=== PATIENT | female | born 1955 | race Hispanic/Latino ===

== ENCOUNTER → 2017-09-22 | Outpatient (CLI) | payer MEDICARE ==
[~2017-09-22] MED LIST: ALEN70TA47 PO; ATOR20TA65 PO; CALCIUM PO; CLOP75TA14 PO; CYCL30DR OP; DOCU50CA13 PO; DULO60CA63 PO; FLUT16H NASAL; GLIM1TAB2 PO; INSU100I24 SQ; METF10004 PO; MONT10TA24 PO; OMEG-125 PO; REGADENOSON 0.4 MG/5 ML PF SYG IVP SCH; VALS40TA11 PO; VERA180T8 PO; [UNRECOGNIZED DRUG - OTHER] PO
== END | disposition home or self-care (01) ==
LOC: EDSTATUS 08:20 → SHCH 08:28
PROVIDERS: ATTEND Internal Medicine Cardiovascular Disease
DX: I25.10 Atherosclerotic heart disease of native coronary artery without angina pectoris (principal)
CPT/HCPCS: 78452; 93017; 96374; A9500 ×2; J2785

== ENCOUNTER 2017-10-22 07:25 | Day surgery (SDC) | payer MEDICARE ==
[2017-10-20 08:44] VITALS: BP 131/71
[2017-10-20 08:52] LABS: BASOPHILS % (AUTO) 0.6 % (0.0-5.0); EOSINOPHILS % (AUTO) 1.1 % (0.0-8.0); HEMATOCRIT 41.6 % (36-48); LYMPHOCYTES % (AUTO) 23.5 % (21.0-51.0); MEAN CORPUSCULAR HEMOGLOBIN 32.2 pg (27.0-33.0); MEAN CORPUSCULAR HGB CONC 34.6 g/dL (32.0-36.0); MONOCYTES % (AUTO) 5.7 % (3.0-13.0); NEUTROPHILS % (AUTO) 69.1 % (40.0-77.0); PLATELET COUNT (AUTO) 299 K/uL (130-400); RED BLOOD CELL COUNT(AUTO) 4.47 MIL/uL (4.00-5.50); WHITE BLOOD COUNT (AUTO) 8.4 K/uL (4.8-10.8)
[2017-10-20 08:52] LABS: APPEARANCE,URINE Clear (CLEAR); BILIRUBIN,URINE Negative (NEGATIVE); COLOR,URINE Yellow (YELLOW); GLUCOSE, URINE (UA) Negative (NEGATIVE); KETONES,URINE Negative (NEGATIVE); LEUKOCYTE ESTERASE ,URINE Trace (NEGATIVE); NITRATE,URINE Negative (NEGATIVE); OCCULT BLOOD,URINE Negative (NEGATIVE); PROTEIN,URINE Negative (NEGATIVE); UROBILINOGEN,URINE 0.2 mg/dL (0.2-1.0)
[2017-10-20 09:05] LABS: BACTERIA,URINE Few /HPF (None Seen); RBC,URINE 0-1 /HPF (0-1); WBC,URINE 0-1 /HPF (0-1)
[2017-10-20 09:10] LABS: INR 0.95 (0.85-1.15); PARTIAL THROMBOPLASTIN TIME 25.9 SEC (26.3-35.5)
[2017-10-20 10:03] LABS: CREATININE 0.7 mg/dL (0.5-1.5); POTASSIUM 4.4 mmol/L (3.5-5.1)
[~2017-10-22] VITALS: Ht 160 cm; Wt 90.5 kg
[2017-10-22] VITALS (20 sets, daily range): BP systolic 99–134; BP diastolic 52–72
[~2017-10-22 07:25] MED LIST changes: -REGADENOSON 0.4 MG/5 ML PF SYG IVP SCH; +SODIUM CHLORIDE 0.9% 1000ML 1,000 ML IV SCH
[2017-10-22] MEDS ORDERED: IOPAMIDOL-370 75 ML VIAL IV ONE (08:55)
[2017-10-22] MEDS ORDERED: ISOVUE-370 50ML VIAL IV ONE (08:55)
[2017-10-22] MEDS ORDERED: LIDOCAINE HCL-MPF 2% 5ML VIAL ONE (09:18)
[2017-10-22] MEDS ORDERED: DEXTROSE 50%-WATER 50 ML DISP.SYRIN IV PRN (10:00)
[2017-10-22] MEDS ORDERED: GLUCAGON 1MG KIT 1 MG ML IM PRN (10:00)
[2017-10-22] MEDS ORDERED: INSULIN HUMULIN R 100 UNIT/ML 3ML SQ SCH (11:30)
== END 2017-10-22 18:45 | disposition home or self-care (01) ==
LOC: DAH 07:25
PROVIDERS: ATTEND Internal Medicine Cardiovascular Disease
DX: I25.118 Atherosclerotic heart disease of native coronary artery with other forms of angina pectoris (principal); Z79.899 Other long term (current) drug therapy; G47.30 Sleep apnea, unspecified; E78.5 Hyperlipidemia, unspecified; M81.0 Age-related osteoporosis without current pathological fracture; M06.9 Rheumatoid arthritis, unspecified; M19.90 Unspecified osteoarthritis, unspecified site; I11.9 Hypertensive heart disease without heart failure; E66.09 Other obesity due to excess calories; Z98.890 Other specified postprocedural states; Z90.710 Acquired absence of both cervix and uterus; Z90.49 Acquired absence of other specified parts of digestive tract; Z82.49 Family history of ischemic heart disease and other diseases of the circulatory system; Z83.3 Family history of diabetes mellitus; Z68.36 Body mass index [BMI] 36.0-36.9, adult; Z79.01 Long term (current) use of anticoagulants
CPT/HCPCS: 36415; 71045; 80048; 81001; 82948 ×2; 85025; 85610; 85730; 93005; 93458; A4606; C1894; J1815; J3490; J7030; Q9967 ×2

== ENCOUNTER → 2018-07-26 | Outpatient (CLI) | payer MEDICARE ==
[~2018-07-26] MED LIST changes: +ALEN70TA10 PO; -ALEN70TA47 PO; +METF-446 PO; -METF10004 PO; -SODIUM CHLORIDE 0.9% 1000ML 1,000 ML IV SCH
== END | disposition home or self-care (01) ==
LOC: RAH 12:59
PROVIDERS: ATTEND Family Medicine
DX: R51 Headache (principal)
CPT/HCPCS: 70450

== ENCOUNTER → 2018-10-22 | Outpatient (CLI) | payer MEDICARE ==
[~2018-10-22] MED LIST changes: +VERA180T12 PO; -VERA180T8 PO
== END | disposition home or self-care (01) ==
LOC: RAH 09:18
PROVIDERS: ATTEND Family Medicine
DX: M19.032 Primary osteoarthritis, left wrist (principal)
CPT/HCPCS: 73200

== ENCOUNTER → 2020-10-30 | Outpatient (CLI) | payer MEDICARE ==
[~2020-10-30] MED LIST changes: -ALEN70TA10 PO; +ALEN70TA80 PO; -DULO60CA63 PO; +DULO60CA64 PO; +GLIM1TAB18 PO; -GLIM1TAB2 PO; +MONT-39 PO; -MONT10TA24 PO; -VERA180T12 PO; +VERA180T61 PO
== END | disposition home or self-care (01) ==
LOC: SHCH 14:36
PROVIDERS: ATTEND Internal Medicine Cardiovascular Disease
DX: I73.9 Peripheral vascular disease, unspecified (principal)
CPT/HCPCS: 93925

== ENCOUNTER → 2021-04-08 | Outpatient (CLI) | payer MEDICARE | END | disposition home or self-care (01) | LOC: RAH 12:11 | PROVIDERS: ATTEND Family Medicine | DX: M47.814 Spondylosis without myelopathy or radiculopathy, thoracic region (principal); M25.78 Osteophyte, vertebrae | CPT/HCPCS: 71110; 72070 ==

== ENCOUNTER 2021-08-16 09:00 | Inpatient (IN) | payer MEDICARE ==
[~2021-08-16] VITALS: Ht 160 cm; Wt 89.7 kg
[~2021-08-16 09:00] MED LIST changes: -ALEN70TA80 PO; -ATOR20TA65 PO; -CALCIUM PO; -CYCL30DR OP; -DOCU50CA13 PO; -FLUT16H NASAL; -INSU100I24 SQ; -OMEG-125 PO; -[UNRECOGNIZED DRUG - OTHER] PO
[2021-08-16 10:07] LABS: BASOPHILS % (AUTO) 0.4 % (0.0-5.0); EOSINOPHILS % (AUTO) 1.4 % (0.0-8.0); HEMATOCRIT 43.2 % (36-48); MEAN CORPUSCULAR HEMOGLOBIN 31.1 pg (27.0-33.0); MEAN CORPUSCULAR VOLUME 91.3 fL (79-99); MONOCYTES % (AUTO) 6.2 % (3.0-13.0); NEUTROPHILS % (AUTO) 65.5 % (40.0-77.0); PLATELET COUNT (AUTO) 276 K/uL (130-400); RED BLOOD CELL COUNT(AUTO) 4.73 MIL/uL (4.00-5.50); RED CELL DISTRIBUTION WIDTH 12.4 % (11.0-15.5); WHITE BLOOD COUNT (AUTO) 8.6 K/uL (4.8-10.8)
[2021-08-16 10:15] LABS: CREATININE 0.7 mg/dL (0.5-1.5); POTASSIUM 4.1 mmol/L (3.5-5.1)
[2021-08-16 10:17] LABS: PROTHROMBIN TIME 10.9 SEC (9.6-11.6)
[2021-08-16 10:19] LABS: APPEARANCE,URINE Clear (CLEAR); BILIRUBIN,URINE Negative (NEGATIVE); COLOR,URINE Yellow (YELLOW); GLUCOSE, URINE (UA) >=1000 mg/dL (NEGATIVE); KETONES,URINE Negative (NEGATIVE); LEUKOCYTE ESTERASE ,URINE Negative (NEGATIVE); NITRATE,URINE Negative (NEGATIVE); OCCULT BLOOD,URINE Negative (NEGATIVE); PROTEIN,URINE Negative (NEGATIVE); UROBILINOGEN,URINE 0.2 mg/dL (0.2-1.0)
[2021-08-16 10:38] LABS: BACTERIA,URINE Few /HPF (None Seen)
[2021-08-16 10:42] LABS: RBC,URINE None Seen /HPF (0-1); URIC ACID CRYSTALS,URINE Rare /LPF (None Seen); WBC,URINE 0-1 /HPF (0-1)
[2021-08-16 13:35] VITALS: BP 151/79
[2021-08-16] MEDS ORDERED: FURO20TA4 PO (15:32)
[2021-08-16] MEDS ORDERED: TRAM50TA4 PO (15:32)
[2021-08-16] MEDS ORDERED: LINA145C PO (15:32)
[2021-08-16] MEDS ORDERED: MILK175T2 PO (15:32)
[2021-08-16] MEDS ORDERED: LEVO50CA4 PO (15:32)
[2021-08-16] MEDS ORDERED: FISH1CAP50 PO (15:32)
[2021-08-16] MEDS ORDERED: PITA4TAB2 PO (15:32)
[2021-08-16] MEDS ORDERED: LEVO5TAB13 PO (15:32)
[2021-08-16] MEDS ORDERED: INSU100V37 SQ (15:32)
[2021-08-19] VITALS (29 sets, daily range): BP systolic 89–136; BP diastolic 48–78
[2021-08-19] MEDS ORDERED: CEFAZOLIN SODIUM 1 GM VIAL IVP SCH (06:00)
[2021-08-19] MEDS ORDERED: 0.9%NACL 1000ML 1,000 ML IV ONE (06:53)
[2021-08-19] MEDS ORDERED: CEFAZOLIN SODIUM 1 GM VIAL ONE (08:48)
[2021-08-19] MEDS ORDERED: TRANEXAMIC ACID 1000MG/10ML ONE ×2 (08:48→14:33)
[2021-08-19] MEDS ORDERED: ACETAMINOPHEN 500 MG TABLET ONE (09:00)
[2021-08-19] MEDS ORDERED: CELECOXIB 200 MG CAP ONE (09:00)
[2021-08-19] MEDS ORDERED: METOCLOPRAMIDE 10 MG/2 ML VIAL ONE (09:00)
[2021-08-19] MEDS ORDERED: MIDAZOLAM HCL 1 MG/ML 2ML VIAL ONE ×2 (09:26→11:35)
[2021-08-19] MEDS ORDERED: PROPOFOL 10 MG/ML 20ML VIAL IV ONE (11:35)
[2021-08-19] MEDS ORDERED: FENTANYL CITRATE PF 50 MCG/1 ML 2ML VIAL ONE (11:35)
[2021-08-19] MEDS ORDERED: LIDOCAINE PF 100MG/5ML (2%) SYRINGE 5ML ONE (11:35)
[2021-08-19] MEDS ORDERED: ROCURONIUM 10MG/1ML SYR 10 MG/ML ML ONE (11:35)
[2021-08-19] MEDS ORDERED: SUCCINYLCHOLINE CHLORIDE 20 MG/ML 10 ML VIAL ONE (11:35)
[2021-08-19] MEDS ORDERED: CEFAZOLIN SODIUM 2 GM VIAL IV ONE (11:38)
[2021-08-19] MEDS ORDERED: ROPIVACAINE 0.5% 5MG/ML 30ML IJ ONE (11:39)
[2021-08-19] MEDS ORDERED: TRANEXAMIC ACID 1000MG/10ML IV ONE (11:40)
[2021-08-19] MEDS ORDERED: EPHEDRINE SULFATE 50 MG/ML AMPULE ONE ×3 (11:55→14:26)
[2021-08-19] MEDS ORDERED: GLYCOPYRROLATE 1 MG/5 ML SYRINGE ONE (12:11)
[2021-08-19] MEDS ORDERED: CEFAZOLIN SODIUM 1 GM VIAL IRRIG ONE (12:20)
[2021-08-19] MEDS ORDERED: LIDOCAINE HCL-MPF 1% 2ML VIAL IV PRN (14:00)
[2021-08-19] MEDS ORDERED: KCL 20 MEQ ERTAB PO PRN (14:00)
[2021-08-19] MEDS ORDERED: OXYCODONE HCL 5 MG TAB PO PRN (14:00)
[2021-08-19] MEDS ORDERED: DiphenhydrAMINE HCL 50 MG/ML VIAL IVP PRN (14:00)
[2021-08-19] MEDS ORDERED: ONDANSETRON 4MG INJ IVP PRN (14:00)
[2021-08-19] MEDS ORDERED: TRAMADOL HCL 50 MG TABLET PO PRN ×2 (14:00→18:00)
[2021-08-19] MEDS ORDERED: POTASSIUM CHLORIDE 20MEQ/100ML 100 ML IV PRN (14:00)
[2021-08-19] MEDS: ACETAMINOPHEN 500 MG TABLET PO SCH ×2 (14:00→20:24)
[2021-08-19] MEDS ORDERED: FERROUS FUMARATE 324 MG TABLET PO PRN (14:00)
[2021-08-19] MEDS ORDERED: TEMAZEPAM 15 MG CAPSULE PO PRN (14:00)
[2021-08-19] MEDS: 0.9%NACL 1000ML 1,000 ML IV SCH ×2 (14:00→20:26)
[2021-08-19] MEDS ORDERED: POTASSIUM CHLORIDE 10% ELIXIR 20 MEQ/15 ML UDCUP PO PRN (14:00)
[2021-08-19] MEDS ORDERED: NEOSTIGMINE 5MG/5ML SYR IV ONE (14:05)
[2021-08-19] MEDS: CEFAZOLIN SODIUM 1 GM VIAL IVP SCH (19:15)
[2021-08-19] MEDS: ASPIRIN 81 MG EC TAB PO SCH (20:24)
[2021-08-19] MEDS: PREGABALIN 25 MG CAP PO SCH (20:24)
[2021-08-19] MEDS: Levocetirizine Dihydrochloride 5 MG PO SCH (20:25)
[2021-08-19] MEDS: GLIMEPIRIDE 2 MG TABLET PO SCH (20:25)
[2021-08-19] MEDS: FAMOTIDINE 20MG TAB PO SCH (20:25)
[2021-08-19] MEDS: MONTELUKAST SODIUM 10 MG TAB PO SCH (20:25)
[2021-08-19] MEDS: CELECOXIB 200 MG CAP PO SCH (20:25)
[2021-08-19] MEDS: VALSARTAN 40 MG PO SCH (20:25)
[2021-08-19] MEDS ORDERED: NON-FORMULARY MEDICATION 1 EACH (Metformin HCl 1,000 MG) PO SCH (21:00)
[2021-08-19] MEDS ORDERED: NON-FORMULARY MEDICATION 1 EACH (Glimepiride 1 MG) PO SCH (21:00)
[2021-08-20] MEDS: CEFAZOLIN SODIUM 1 GM VIAL IVP SCH (03:35)
[2021-08-20 03:41] VITALS: BP 151/89
[2021-08-20 04:13] LABS: HEMATOCRIT 34.5 % (36-48); MEAN CORPUSCULAR HEMOGLOBIN 30.6 pg (27.0-33.0); MEAN CORPUSCULAR HGB CONC 33.6 g/dL (32.0-36.0); RED BLOOD CELL COUNT(AUTO) 3.79 MIL/uL (4.00-5.50); RED CELL DISTRIBUTION WIDTH 12.6 % (11.0-15.5)
[2021-08-20 04:22] LABS: CREATININE 0.7 mg/dL (0.5-1.5); POTASSIUM 3.8 mmol/L (3.5-5.1)
[2021-08-20] MEDS: ACETAMINOPHEN 500 MG TABLET PO SCH ×3 (05:54→19:59)
[2021-08-20] MEDS: LEVOTHYROXINE 50 MCG TABLET PO SCH (05:55)
[2021-08-20 08:18] VITALS: BP 120/66
[2021-08-20] MEDS: DULOXETINE HCL 30 MG CAP PO SCH (08:44)
[2021-08-20] MEDS: ASPIRIN 81 MG EC TAB PO SCH ×2 (08:44→19:57)
[2021-08-20] MEDS: FUROSEMIDE 20 MG TABLET PO SCH (08:44)
[2021-08-20] MEDS: GLIMEPIRIDE 2 MG TABLET PO SCH ×2 (08:45→19:58)
[2021-08-20] MEDS: METFORMIN HCL 500 MG TABLET PO SCH ×2 (08:45→15:57)
[2021-08-20] MEDS: CALCIUM CARB 500MG PO PRN ×2 (08:45→19:57)
[2021-08-20] MEDS: CELECOXIB 200 MG CAP PO SCH ×2 (08:45→19:59)
[2021-08-20] MEDS: CLOPIDOGREL 75MG TAB PO SCH (08:45)
[2021-08-20] MEDS: PREGABALIN 25 MG CAP PO SCH (08:46)
[2021-08-20] MEDS: POLYETHYLENE GLYCOL 3350 17 GM POWD.PACK PO SCH (08:46)
[2021-08-20] MEDS: FAMOTIDINE 20MG TAB PO SCH ×2 (08:46→19:57)
[2021-08-20] MEDS: Linaclotide (Linzess) 145 MCG PO SCH (08:53)
[2021-08-20] MEDS ORDERED: NON-FORMULARY MEDICATION 1 EACH (Duloxetine HCl 60 MG) PO SCH (09:00)
[2021-08-20] MEDS ORDERED: NON-FORMULARY MEDICATION 1 EACH (Levothyroxine Sodium (Levothyroxine) 50 MCG) PO SCH (09:00)
[2021-08-20] MEDS: VERAPAMIL HCL 180 MG PO SCH (09:00)
[2021-08-20] MEDS: INSULIN DEGLUDEC SQ SCH (09:00)
[2021-08-20] MEDS: 0.9%NACL 1000ML 1,000 ML IV SCH (09:52)
[2021-08-20 11:54] VITALS: BP 112/61
[2021-08-20] MEDS: OXYCODONE HCL 5 MG TAB PO PRN ×3 (12:06→19:59)
[2021-08-20] MEDS: GABAPENTIN 100 MG CAPSULE PO SCH ×2 (14:36→19:58)
[2021-08-20 16:31] VITALS: BP 134/67
[2021-08-20] MEDS: KETOROLAC 15MG/ML VIAL (15MG/ML) IV PRN (17:42)
[2021-08-20] MEDS: Levocetirizine Dihydrochloride 5 MG PO SCH (19:55)
[2021-08-20] MEDS: VALSARTAN 40 MG PO SCH (19:55)
[2021-08-20] MEDS: MONTELUKAST SODIUM 10 MG TAB PO SCH (19:57)
[2021-08-20 20:41] VITALS: BP 136/64
[2021-08-20 23:33] VITALS: BP 136/70
[2021-08-21 04:12] VITALS: BP 116/62
[2021-08-21] MEDS: LEVOTHYROXINE 50 MCG TABLET PO SCH (05:54)
[2021-08-21] MEDS: GABAPENTIN 100 MG CAPSULE PO SCH ×2 (05:54→13:03)
[2021-08-21] MEDS: ACETAMINOPHEN 500 MG TABLET PO SCH ×2 (05:55→13:04)
[2021-08-21] MEDS: OXYCODONE HCL 5 MG TAB PO PRN ×2 (06:37→13:04)
[2021-08-21 07:36] VITALS: BP 143/65
[2021-08-21] MEDS: KETOROLAC 15MG/ML VIAL (15MG/ML) IV PRN (08:38)
[2021-08-21] MEDS: POLYETHYLENE GLYCOL 3350 17 GM POWD.PACK PO SCH (08:40)
[2021-08-21] MEDS: CLOPIDOGREL 75MG TAB PO SCH (08:41)
[2021-08-21] MEDS: ASPIRIN 81 MG EC TAB PO SCH (08:41)
[2021-08-21] MEDS: GLIMEPIRIDE 2 MG TABLET PO SCH (08:41)
[2021-08-21] MEDS: DULOXETINE HCL 30 MG CAP PO SCH (08:41)
[2021-08-21] MEDS: METFORMIN HCL 500 MG TABLET PO SCH ×2 (08:41→17:43)
[2021-08-21] MEDS: CELECOXIB 200 MG CAP PO SCH (08:41)
[2021-08-21] MEDS: FUROSEMIDE 20 MG TABLET PO SCH (08:42)
[2021-08-21] MEDS: FAMOTIDINE 20MG TAB PO SCH (08:42)
[2021-08-21] MEDS: INSULIN DEGLUDEC SQ SCH (09:00)
[2021-08-21] MEDS: VERAPAMIL HCL 180 MG PO SCH (09:00)
[2021-08-21] MEDS: Linaclotide (Linzess) 145 MCG PO SCH (09:00)
[2021-08-21 11:12] VITALS: BP 127/55
[2021-08-21 16:02] VITALS: BP 137/66
[2021-08-22] MEDS ORDERED: BISACODYL 10 MG SUPP.RECT RC PRN (14:00)
== END 2021-08-21 18:30 | DRG 470 ==
LOC: OBSVTOIN 08-19 06:36 → DAHIP 08-19 06:36 → EDSTATUS 08-19 09:00 → 4AH 08-19 15:09
PROVIDERS: ADMIT Orthopaedic Surgery; ATTEND Orthopaedic Surgery
PROC: 0SRC0J9 Replacement of Right Knee Joint with Synthetic Substitute, Cemented, Open Approach (ICD-10-PCS; principal; 2021-08-19 12:22)
DX: M17.11 Unilateral primary osteoarthritis, right knee (principal); G89.29 Other chronic pain; E11.9 Type 2 diabetes mellitus without complications; E78.5 Hyperlipidemia, unspecified; E66.9 Obesity, unspecified; Z20.822 Contact with and (suspected) exposure to COVID-19; I11.9 Hypertensive heart disease without heart failure; D64.9 Anemia, unspecified; Z83.3 Family history of diabetes mellitus; Z82.3 Family history of stroke; Z82.49 Family history of ischemic heart disease and other diseases of the circulatory system; Z90.710 Acquired absence of both cervix and uterus; Z68.35 Body mass index [BMI] 35.0-35.9, adult
CPT/HCPCS: 36415; 80048; 81001; 82948; 85025; 85027; 85610; 87635; 87641; 94760; 96374; 97039; G0378; J0330; J0690; J1885; J2001; J2250; J2704; J2710; J2765; J2795; J3010; J3490; J7030; J7120

== ENCOUNTER → 2022-05-22 | Outpatient (CLI) | payer MEDICARE ==
[~2022-05-22] MED LIST changes: +CLOP-31 PO; -CLOP75TA14 PO; +FISH1CAP50 PO; +FURO20TA4 PO; +INSU100V37 SQ; +LEVO50CA4 PO; +LEVO5TAB13 PO; +LINA145C PO; +MILK175T2 PO; +PITA4TAB2 PO; +TRAM50TA4 PO
== END | disposition home or self-care (01) ==
LOC: RAH 12:00
PROVIDERS: ATTEND Family Medicine
DX: S32.010A Wedge compression fracture of first lumbar vertebra, initial encounter for closed fracture (principal); M41.84 Other forms of scoliosis, thoracic region; M25.78 Osteophyte, vertebrae; M89.8X8 Other specified disorders of bone, other site; M54.6 Pain in thoracic spine; Z90.49 Acquired absence of other specified parts of digestive tract; Z91.81 History of falling; W19.XXXA Unspecified fall, initial encounter; Y93.89 Activity, other specified; Y92.89 Other specified places as the place of occurrence of the external cause; Y99.8 Other external cause status
CPT/HCPCS: 71111; 72072

== ENCOUNTER → 2023-03-02 | Outpatient (CLI) | payer MEDICARE ==
[2023-03-02 12:36] LABS: CREATININE 0.8 mg/dL (0.5-1.5); POTASSIUM 4.9 mmol/L (3.5-5.1)
== END | disposition home or self-care (01) ==
LOC: LAB 10:51
PROVIDERS: ATTEND Physician Assistant
DX: R07.9 Chest pain, unspecified (principal)
CPT/HCPCS: 36415; 80048

== ENCOUNTER → 2023-03-06 | Outpatient (CLI) | payer MEDICARE ==
[~2023-03-06] MED LIST changes: +IOHEXOL 350 MG/ML 100ML INFUS..BTL IV ONE; +METOPROLOL TARTRATE 1 MG/ML 5ML VIAL IV ONE
== END | disposition home or self-care (01) ==
LOC: RAH 09:11
PROVIDERS: ATTEND Internal Medicine Cardiovascular Disease
DX: I25.10 Atherosclerotic heart disease of native coronary artery without angina pectoris (principal); R07.9 Chest pain, unspecified; M47.815 Spondylosis without myelopathy or radiculopathy, thoracolumbar region
CPT/HCPCS: 75574; J3490; Q9967

== ENCOUNTER → 2023-11-23 | Outpatient (CLI) | payer MEDICARE ==
[~2023-11-23] MED LIST changes: -GLIM1TAB18 PO; +GLIM1TAB56 PO; -IOHEXOL 350 MG/ML 100ML INFUS..BTL IV ONE; -METOPROLOL TARTRATE 1 MG/ML 5ML VIAL IV ONE
== END | disposition home or self-care (01) ==
LOC: RAH 10:06
PROVIDERS: ATTEND Internal Medicine
DX: M47.22 Other spondylosis with radiculopathy, cervical region (principal); M47.816 Spondylosis without myelopathy or radiculopathy, lumbar region; M41.84 Other forms of scoliosis, thoracic region; R10.2 Pelvic and perineal pain; M41.86 Other forms of scoliosis, lumbar region; M43.16 Spondylolisthesis, lumbar region
CPT/HCPCS: 72040; 72081; 72100

== ENCOUNTER → 2024-10-12 | Outpatient (CLI) | payer MEDICARE, MEDICAID ==
[~2024-10-12] MED LIST changes: -LEVO50CA4 PO; +LEVO50CA5 PO
--- NOTE | 2024-10-12 16:34 | HMCIMG ---
THORACIC SPINE 2VWS REASON: THORACIC RADICULOPATHY COMPARISON: None. TECHNIQUE: 3 images were obtained. FINDINGS: There are extensive lateral and anterior osteophytes in the mid and lower thoracic spine. Vertebral body heights are maintained and alignment is normal. Interspaces are preserved. There are no compression or other fractures. Soft tissues are normal. IMPRESSION: 1. Moderate degenerative change, no acute finding.
--- NOTE | 2024-10-12 16:36 | HMCIMG ---
EXAM: LUMBAR SPINE 2-3VWS REASON: DJD, LUMBAR. COMPARISON: None. TECHNIQUE: 2 views of the lumbar spine were obtained. FINDINGS: There is 13 degrees levoscoliosis of the lumbar spine epicentered at L2-3. There is 5 mm retrosubluxation of L5 in relation to S1. There are no compression fractures. Alignment is otherwise normal. There are marked degenerative changes in the facets. There are also bulky osteophytes along the right lateral side of the thoracolumbar junction. Soft tissues appear unremarkable. IMPRESSION: 1. 13 degrees levoscoliosis. 2. 5 mm anterior subluxation of L5 on S1.
== END | disposition home or self-care (01) ==
LOC: RAH 11:50
PROVIDERS: ATTEND Internal Medicine
DX: S33.39XA Dislocation of other parts of lumbar spine and pelvis, initial encounter (principal); M47.24 Other spondylosis with radiculopathy, thoracic region; M47.816 Spondylosis without myelopathy or radiculopathy, lumbar region; M41.86 Other forms of scoliosis, lumbar region; X58.XXXA Exposure to other specified factors, initial encounter; Y93.89 Activity, other specified; Y92.89 Other specified places as the place of occurrence of the external cause; Y99.8 Other external cause status
CPT/HCPCS: 72070; 72100

== ENCOUNTER → 2025-03-13 | Outpatient (CLI) | payer MEDICARE, MEDICAID ==
--- NOTE | 2025-03-13 13:58 | HMCIMG ---
EXAM: CR Thoracic Spine, 2 View. CLINICAL HISTORY: Thoracic radiculopathy. COMPARISON: None provided. FINDINGS: BONES: No acute fracture or aggressive osseous lesion. Reduced height with anterior wedging of L1???L2 vertebral bodies resulting in approximately 30???40% loss of vertebral height. DISCS / DEGENERATIVE CHANGES: Severe degenerative thoracic spondylosis with anterior marginal bridging osteophytes and endplate sclerosis. Multilevel disc space narrowing noted in the mid to lower thoracic region. SOFT TISSUES: Paraspinal soft tissue lines are preserved. Visualized lungs are clear. MISCELLANEOUS: Visualization of the upper thoracic spine is partially limited on the lateral view due to overlying structures.IMPRESSION: 1. Anterior wedging of L1-L2 vertebral bodies with 30-40% height loss, suggestive of chronic compression deformity. 2. Severe degenerative thoracic spondylosis with anterior marginal bridging osteophytes, endplate sclerosis, and multilevel disc space narrowing in the mid to lower thoracic region. 3. No acute fracture or aggressive osseous lesion identified. 4. Paraspinal soft tissue lines are preserved. 5. Visualized lungs are clear. 6. Limited visualization of the upper thoracic spine on lateral view due to overlying structures. /[place]
--- NOTE | 2025-03-13 13:59 | HMCIMG ---
EXAM: CR Lumbar Spine, 3 View. CLINICAL HISTORY: Degenerative joint disease, lumbar. COMPARISON: None provided. FINDINGS: BONES: No acute fracture or aggressive osseous lesion. Mild reduced height of L1???L2 vertebral bodies, likely chronic. ALIGNMENT: Mild levoscoliotic deformity of the proximal lumbar spine with paola angle measuring approximately 12???. Grade I anterolisthesis of L5 over S1 associated with a defect in the pars interarticularis. DISCS / DEGENERATIVE CHANGES: Severe degenerative lumbar spondylosis with marginal osteophyte formation and endplate sclerosis. Marked intervertebral disc space narrowing at L5???S1. SOFT TISSUES: Paraspinal soft tissues appear unremarkable. IMPRESSION:1. Severe degenerative lumbar spondylosis, most pronounced at L5-S1 with marked disc space narrowing, marginal osteophytes, and endplate sclerosis. 2. Grade I spondylolytic spondylolisthesis of L5 over S1, associated with pars interarticularis defect. 3. Mild levoscoliosis of the proximal lumbar spine, Jay angle approximately 12???. 4. Mild chronic anterior wedging of L1-L2 vertebral bodies. 5. No acute fracture or aggressive osseous lesion identified. /[place]
--- NOTE | 2025-03-13 13:59 | HMCIMG ---
EXAM: CR Right Knee, 2 View. CLINICAL HISTORY: Contusion of right knee. COMPARISON: None provided. FINDINGS: BONES: Status post total knee arthroplasty with patellar resurfacing. No acute fracture or periprosthetic lucency. No evidence of hardware loosening or failure. JOINTS: Prosthetic components in satisfactory alignment and position. No significant joint effusion or periprosthetic osteolysis. SOFT TISSUES: Periarticular soft tissues appear unremarkable. No abnormal calcification or foreign body. IMPRESSION: 1. No acute findings. /[place]
== END | disposition home or self-care (01) ==
LOC: RAH 11:38
PROVIDERS: ATTEND Internal Medicine
DX: S80.01XA Contusion of right knee, initial encounter (principal); M47.816 Spondylosis without myelopathy or radiculopathy, lumbar region; M47.817 Spondylosis without myelopathy or radiculopathy, lumbosacral region; M25.78 Osteophyte, vertebrae; M43.17 Spondylolisthesis, lumbosacral region; M41.86 Other forms of scoliosis, lumbar region; M48.56XA Collapsed vertebra, not elsewhere classified, lumbar region, initial encounter for fracture; M43.8X6 Other specified deforming dorsopathies, lumbar region; M47.24 Other spondylosis with radiculopathy, thoracic region; M51.14 Intervertebral disc disorders with radiculopathy, thoracic region; M48.07 Spinal stenosis, lumbosacral region; Z96.651 Presence of right artificial knee joint; X58.XXXA Exposure to other specified factors, initial encounter; Y93.89 Activity, other specified; Y92.89 Other specified places as the place of occurrence of the external cause; Y99.8 Other external cause status
CPT/HCPCS: 72070; 72100; 73560